=== PATIENT | male | born 1990 | race Two or more races ===

== ENCOUNTER 2018-10-14 14:51 | Emergency (ER) | payer SELFPAY ==
[2018-10-14] MEDS ORDERED: CEFAZOLIN 1 GM/D5W RTU 1 GM/50 ML RTUPB IV ONE (14:56)
[2018-10-14] MEDS ORDERED: RINGERS SOLUTION,LACTATED 1,000 ML IV PRN (15:16)
[2018-10-14] MEDS ORDERED: DIPH/PERTUSS(ACELL)/TETANUS VAC/PF 0.5 ML SYR (>=10YO) IM ONE (15:16)
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
[2018-10-14] MEDS ORDERED: MORPHINE SULFATE 10 MG/ML INJ IV ONE (15:43)
[2018-10-14] MEDS ORDERED: ONDANSETRON HCL INJ/PF 4 MG/2 ML SDV IV ONE (15:43)
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
== END 2018-10-14 16:00 | disposition short-term general hospital (02) ==
LOC: ER 14:51
DX: S52.501B Unspecified fracture of the lower end of right radius, initial encounter for open fracture type I or II (principal); S61.402A Unspecified open wound of left hand, initial encounter; W34.00XA Accidental discharge from unspecified firearms or gun, initial encounter; Y93.89 Activity, other specified; R61 Generalized hyperhidrosis; Z23 Encounter for immunization

== ENCOUNTER 2020-07-01 07:09 | Observation (INO) | payer SELFPAY ==
--- NOTE | 2020-07-01 07:40 | ER Document Report ---
ED General - General Chief Complaint: Abdominal Pain Stated Complaint: ABDOMINAL PAIN Time Seen by Provider: 07/01/20 07:30 Notes: 30-year-old male presents abdominal pain epigastric onset last night after eating some suspect chicken followed by diarrhea and vomiting x2. Pain persisted all night and is now localized to the lower abdomen right greater than left. Still nauseous but not vomiting no diarrhea no fever. Anorexia. TRAVEL OUTSIDE OF THE [place] IN LAST 30 DAYS: No - Related Data Allergies/Adverse Reactions: No Known Allergies Allergy (Verified 07/01/20 07:43) Past Medical History - General Information source: Patient - Social History Smoking Status: Never Smoker Family History: None Review of Systems - Review of Systems Notes: REVIEW OF SYSTEMS GEN: Denies fever, chills, weight loss ENT: Denies sore throat, nasal discharge, ear pain EYES: Denies blurry vision, eye pain, discharge CV: Denies chest pain, palpitations, edema RESP: Denies cough, shortness of breath, wheezing GI: See HPI MSK: Denies joint pain/swelling, edema, SKIN: Denies rash, skin lesions LYMPH: Denies swollen glands/lymph nodes NEURO: Denies headache, focal weakness or numbness, dizziness PSYCH: Denies depression, suicidal or homicidal ideation PHYSICAL EXAMINATION General: No acute distress, well-nourished Head: Atraumatic, normocephalic ENT: Mouth normal, oropharynx moist, no exudates or tonsillar enlargement Eyes: Conjunctiva normal, pupils equal, lids normal Neck: No JVD, supple, no guarding CVS: Normal rate, regular rhythm, no murmurs Resp: No resp distress, equal and normal breath sounds bilaterally GI: Right Lower abdominal tenderness with guarding Back: No CVA or midline TTP Skin: No rash, warm Lymphatic: No lymphadeopathy noted Neuro: Awake, alert. Face symmetric. GCS 15. Physical Exam - Vital signs Vitals: Temp Pulse Resp BP Pulse Ox 97.5 F 74 14 152/92 H 99 07/01/20 07:13 07/01/20 07:13 07/01/20 07:13 07/01/20 07:13 07/01/20 07:13 Course - Re-evaluation Re-evalutation: 07/01/20 11:21 No abdominal pain labs and CT concerning for appendicitis. Discussed with Eligio. Slight delay because of OR and lack of cover testing, Dr. Leblanc ordered Rocephin and I ordered that for the patient to receive. Sinus pain medicine was given. Surgery she was sorted out approximately 11 AM patient will go to the OR. - Vital Signs Vital signs: Temp Pulse Resp BP Pulse Ox 97.5 F 74 14 152/92 H 99 07/01/20 07:13 07/01/20 07:13 07/01/20 07:13 07/01/20 07:13 07/01/20 07:13 - Laboratory Result Diagrams: 07/01/20 07:50 07/01/20 07:50 Laboratory results interpreted by me: 07/01/20 07/01/20 07:50 07:50 WBC 15.3 H Seg Neuts % (Manual) 88 H Lymphocytes % (Manual) 6 L Abs Neuts (Manual) 13.5 H Glucose 140 H Discharge - Discharge Clinical Impression: Acute appendicitis Qualifiers: Acute appendicitis type: with localized peritonitis Appendicitis gangrene presence: without gangrene Appendicitis perforation presence: without perforation Appendicitis abscess presence: without abscess Qualified Code(s): K35.30 - Acute appendicitis with localized peritonitis, without perforation or gangrene Condition: Fair Disposition: ADMITTED INPATIENT Admitting Provider: Surgicalist Unit Admitted: Surgical Floor
[2020-07-01] MEDS ORDERED: ONDANSETRON HCL INJ/PF 4 MG/2 ML SDV IV ONE ×2 (08:12→15:02)
[2020-07-01] MEDS ORDERED: FENTANYL CITRATE INJ/PF 100 MCG/2 ML AMPUL IV ONE (08:12)
[2020-07-01 08:18] LABS: HEMATOCRIT 43.3 % (37.9-51.0); HEMOGLOBIN 15.1 g/dL (13.5-17.0); MEAN CORPUSCULAR HEMOGLOBIN 30.2 pg (27.0-33.4); MEAN CORPUSCULAR HGB CONC 34.8 g/dL (32.0-36.0); MEAN CORPUSCULAR VOLUME 87 fl (80-97); PLATELET COUNT 214 10^3/uL (150-450); RED CELL DISTRIBUTION WIDTH 12.9 % (11.5-14.0); WHITE BLOOD COUNT 15.3 10^3/uL (4.0-10.5)
[2020-07-01 08:30] LABS: ALKALINE PHOSPHATASE 53 U/L (38-126); ANION GAP 12 (5-19); ASPARTATE AMINO TRANSFERASE 20 U/L (17-59); BILIRUBIN,DIRECT 0.4 mg/dL (0.0-0.4); BLOOD UREA NITROGEN 12 mg/dL (7-20); CALCIUM 9.5 mg/dL (8.4-10.2); CARBON DIOXIDE 25 mmol/L (22-30); CHLORIDE 102 mmol/L (98-107); GLUCOSE 140 mg/dL (75-110)
[2020-07-01 09:02] LABS: ABSOLUTE LYMPHOCYTES# (MANUAL) 0.9 10^3/uL (0.5-4.7); ABSOLUTE MONOCYTES # (MANUAL) 0.9 10^3/uL (0.1-1.4); BASOPHILS % (MANUAL) 0 % (0-2); EOSINOPHILS % (MANUAL) 0 % (0-6); LYMPHOCYTES % (MANUAL) 6 % (13-45); MONOCYTES % (MANUAL) 6 % (3-13); SEGMENTED NEUTROPHILS % (MAN) 88 % (42-78); TOTAL CELLS COUNTED 100
[2020-07-01 09:03] LABS: PLATELET COMMENT ADEQUATE; RBC MORPHOLOGY COMMENT NORMO-CYTIC/CHROMIC; TOXIC GRANULATION SLIGHT
--- NOTE | 2020-07-01 09:04 | RADIOLOGY REPORT (SQ) ---
EXAM DESCRIPTION: CT ABD/PELVIS WITH IV ONLY IMAGES COMPLETED DATE/TIME: 07/01/2020 8:48 am REASON FOR STUDY: appy COMPARISON: None. TECHNIQUE: CT scan of the abdomen and pelvis performed using helical scanning technique with dynamic intravenous contrast injection. No oral contrast. Images reviewed with lung, soft tissue, and bone windows. Reconstructed coronal and sagittal MPR images reviewed. Delayed images for evaluation of the urinary system also acquired. All images stored on PACS. All CT scanners at this facility use dose modulation, iterative reconstruction, and/or weight based d osing when appropriate to reduce radiation dose to as low as reasonably achievable (ALARA). [facility]: Dose Right [facility]: CareDose [facility]: Dose Right [facility]: Teradose 4D [facility]: TapRush CONTRAST TYPE AND DOSE: contrast/concentration: Isovue 350.00 mmol/ml; Total Contrast Delivered: 98. 0 ml; Total Saline Delivered: 69.9 ml RENAL FUNCTION: None required. The patient is less than 50 years old. RADIATION DOSE: CT Rad equipment meets quality standard of care and radiation dose reduction techniq ues were employed. CTDIvol: 7.5 - 10.4 mGy. DLP: 1023 mGy-cm.. LIMITATIONS: None. FINDINGS: LOWER CHEST: No significant findings. No nodules or infiltrates. LIVER: Normal size. No masses. No dilated ducts. SPLEEN: Normal size. No focal lesions. PANCREAS: No masses. No significant calcifications. No adjacent inflammation or peripancreatic fluid collections. Pancreatic duct not dilated. GALLBLADDER: No identified stones by CT criteria. No inflammatory changes to suggest cholecystitis. ADRENAL GLANDS: No significant masses or asymmetry. RIGHT KIDNEY AND URETER: No solid masses. No significant calcifications. No hydronephrosis or hyd roureter. LEFT KIDNEY AND URETER: No solid masses. No significant calcifications. No hydronephrosis or hydr oureter. AORTA AND VESSELS: No aneurysm. No dissection. Renal arteries, SMA, celiac without stenosis. RETROPERITONEUM: No retroperitoneal adenopathy, hemorrhage or masses. BOWEL AND PERITONEAL CAVITY: No masses or inflammatory changes. No free fluid or peritoneal masses. APPENDIX: The appendix extends cephalad from the cecum and is oriented anterior and lateral to the as cending colon. The tip of the appendix is located a few cm below the liver edge. Best demonstrated on coronal series 601, image 25 and axial series 3, images 44- 54. The appendix is slightly distende d, measuring 10 to 11 mm. Scattered gas and fluid within the lumen. No significant thickening of th e appendiceal wall. Minimal blurring in the periappendiceal soft tissues. No abnormal fluid collect ion or extraluminal gas. PELVIS: No mass. No free fluid. Normal bladder. ABDOMINAL WALL: No masses. No hernias. BONES: No significant or acute findings. OTHER: No other significant finding. IMPRESSION: 1. APPENDIX DESCRIBED. SLIGHTLY DISTENDED WITH MINIMAL BLURRING IN THE PERIAPPENDICEAL SOFT TISSU ES. COULD REPRESENT VERY EARLY APPENDICITIS ALTHOUGH THERE IS NO THICKENING OF THE WALL AND VERY LIT TLE INFLAMMATORY CHANGE IS PRESENT. 2. NO OTHER SIGNIFICANT OR ACUTE FINDING IN THE ABDOMEN OR PELVIS ON CT SCAN WITH IV CONTRAST. TECHNICAL DOCUMENTATION: JOB ID: [id number] Quality ID # [id number]: Final reports with documentation of one or more dose reduction techniques (e.g., Au tomated exposure control, adjustment of the mA and/or kV according to patient size, use of iterative reconstruction technique) 2010 [employer]- All Rights Reserved Reading location - IP/workstation name: [email or web address]
[2020-07-01] MEDS ORDERED: ROCURONIUM BROMIDE INJ 50 MG/5 ML VIAL IV ONE (09:34)
[2020-07-01] MEDS ORDERED: NEOSTIGMINE METHYLSULFATE 10 MG/10 ML VIAL ONE (09:34)
[2020-07-01] MEDS ORDERED: SUCCINYLCHOLINE CHLORIDE INJ 200 MG/10 ML VIAL ONE (09:34)
[2020-07-01] MEDS ORDERED: GLYCOPYRROLATE 1 MG/5 ML VIAL ONE (09:34)
[2020-07-01] MEDS ORDERED: CEFTRIAXONE 1 GM/D5W RTU 1 GM/50 ML RTUPB IV ONE (10:00)
--- NOTE | 2020-07-01 11:04 | PDOC H&P ---
History of Present Illness Admission Date/PCP: 07/01/20 09:46 NO LOCALMD Patient complains of: Right lower quadrant abdominal pain for 8 hours History of Present Illness: FELIBERTO TAYLOR is a 30 year old male healthy who presents to the emergency room complaining of the right lower quadrant pain for about 8 hours, associated with intense nausea. No change of bowel. No fever or chills. Past Surgical History Past Surgical History: Reports: Orthopedic Surgery - right arm Social History Smoking Status: Never Smoker Family History Family History: None Parental Family History Reviewed: No Children Family History Reviewed: No Sibling(s) Family History Reviewed.: No Medication/Allergy Allergies/Adverse Reactions: No Known Allergies Allergy (Verified 07/01/20 07:43) Physical Exam Vital Signs: Temp Pulse Resp BP Pulse Ox 97.5 F 74 14 152/92 H 99 07/01/20 07:13 07/01/20 07:13 07/01/20 07:13 07/01/20 07:13 07/01/20 07:13 Intake & Output 06/30/20 07/01/20 07/02/20 06:59 06:59 06:59 Weight 86 kg General appearance: PRESENT: no acute distress, thin, well-developed Eye exam: PRESENT: EOMI Mouth exam: PRESENT: moist, neck supple Neck exam: PRESENT: full ROM Respiratory exam: PRESENT: clear to auscultation jonel Cardiovascular exam: PRESENT: RRR GI/Abdominal exam: PRESENT: soft, tenderness - Right lower quadrant with grimacing Rectal exam: PRESENT: deferred Extremities exam: PRESENT: full ROM Musculoskeletal exam: PRESENT: full ROM Neurological exam: PRESENT: alert, awake, oriented to person Skin exam: PRESENT: warm Results Laboratory Results: 07/01/20 07:50 07/01/20 07:50 07/01/20 07/01/20 07:50 07:50 WBC 15.3 H RBC 5.00 Hgb 15.1 Hct 43.3 MCV 87 MCH 30.2 MCHC 34.8 RDW 12.9 Plt Count 214 Seg Neutrophils % Not Reportable Sodium 138.5 Potassium 4.0 Chloride 102 Carbon Dioxide 25 Anion Gap 12 BUN 12 Creatinine 0.72 Est GFR ( Amer) > 60 Glucose 140 H Calcium 9.5 Total Bilirubin 1.0 AST 20 Alkaline Phosphatase 53 Total Protein 8.0 Albumin 5.0 Lipase 66.9 Impressions: Abdomen/Pelvis CT 07/01/20 08:12 IMPRESSION: 1. APPENDIX DESCRIBED. SLIGHTLY DISTENDED WITH MINIMAL BLURRING IN THE PERIAPPENDICEAL SOFT TISSUES. COULD REPRESENT VERY EARLY APPENDICITIS ALTHOUGH THERE IS NO THICKENING OF THE WALL AND VERY LITTLE INFLAMMATORY CHANGE IS PRESENT. 2. NO OTHER SIGNIFICANT OR ACUTE FINDING IN THE ABDOMEN OR PELVIS ON CT SCAN WITH IV CONTRAST. Assessment & Plan - Diagnosis (1) Acute appendicitis Qualifiers: Acute appendicitis type: with localized peritonitis Appendicitis gangrene presence: without gangrene Appendicitis perforation presence: without perforation Appendicitis abscess presence: without abscess Qualified Code(s): K35.30 - Acute appendicitis with localized peritonitis, without perforation or gangrene - Time Anticipated Discharge Disposition: Home, Self Care Anticipated Discharge Timeframe: within 24 hours - Plan Summary Plan Summary: Assessment: Right lower quadrant pain for 8 hours Acute appendicitis on CAT scan Leukocytosis (15,000) No past medical history Plan: Plan n.p.o. IV fluids normal saline 150 mL/h Rocephin 2 g IV piggyback and 2 g preop Laparoscopic appendectomy possible open. Procedure, risks, benefits, complications, explained to the patient, including the possibility of bowel injury, bleeding, DVT, infection, his questions answered, he understands all the above, and he decides to proceed
[2020-07-01] MEDS: HYDROMORPHONE HCL INJ/PF 2 MG/ML AMPULE IV PRN ×2 (11:57→21:13)
[2020-07-01 12:46] LABS: APPEARANCE,URINE CLEAR; BILIRUBIN,URINE NEGATIVE (NEGATIVE); COLOR,URINE YELLOW; GLUCOSE, URINE NEGATIVE (NEGATIVE); KETONES,URINE 80 mg/dL (NEGATIVE); LEUKOCYTE ESTERASE,URINE NEGATIVE (NEGATIVE); NITRITE,URINE NEGATIVE (NEGATIVE); PROTEIN,URINE NEGATIVE (NEGATIVE); UROBILINOGEN,URINE NEGATIVE mg/dL (<2.0)
[2020-07-01 12:51] LABS: URINE SPECIFIC GRAVITY > 1.060
[2020-07-01] MEDS ORDERED: DEXAMETHASONE SOD PHOSPHATE INJ 4 MG/1 ML VIAL ONE (16:26)
[2020-07-01] MEDS ORDERED: FENTANYL CITRATE INJ/PF 100 MCG/2 ML AMPUL ONE (16:26)
[2020-07-01] MEDS ORDERED: PROPOFOL INJ 200 MG/20 ML VIAL IV ONE (16:26)
[2020-07-01] MEDS ORDERED: MIDAZOLAM 2 MG/2 ML INJ ONE (16:26)
[2020-07-01] MEDS ORDERED: ONDANSETRON HCL INJ/PF 4 MG/2 ML SDV ONE (16:26)
[2020-07-01] MEDS ORDERED: KETOROLAC TROMETHAMINE 60 MG/2 ML SDV ONE (16:26)
[2020-07-01] MEDS ORDERED: BUPIVACAINE HCL 0.5%-EPI 1:200000 INJ/PF 30 ML VIAL ONE (17:44)
[2020-07-01] MEDS ORDERED: FENTANYL CITRATE INJ/PF 100 MCG/2 ML AMPUL IV PRN ×3 (18:19)
[2020-07-01] MEDS ORDERED: MEPERIDINE HCL/PF INJ 25 MG/1 ML DISP.SYRIN IV PRN (18:19)
[2020-07-01] MEDS ORDERED: DIPHENHYDRAMINE HCL 50 MG/ML VIAL IV PRN (18:19)
[2020-07-01] MEDS ORDERED: MORPHINE SULFATE 10 MG/ML INJ IV PRN (18:19)
[2020-07-01] MEDS ORDERED: PROMETHAZINE HCL INJ 25 MG/1 ML VIAL IV PRN (18:19)
--- NOTE | 2020-07-01 18:54 | Operative Report ---
Operative Report DATE OF SURGERY: 07/01/20 PREOPERATIVE DIAGNOSIS: Acute appendicitis POSTOPERATIVE DIAGNOSIS: Same OPERATION: LaparoScopic appendectomy SURGEON: CHARLY SHERMAN ANESTHESIA: GA - +30 mL's of-10 medicated with epinephrine TISSUE REMOVED OR ALTERED: Appendix COMPLICATIONS: None ESTIMATED BLOOD LOSS: Eligible INTRAOPERATIVE FINDINGS: Acute non-perforated appendicitis PROCEDURE: The procedure was done in the operating room. The patient was placed in a supine position, general anesthesia induced by endotracheal intubation, the abdomen was prepped and draped in usual fashion. An incision was made just above the umbilicus with a #15 blade, the skin was tented with towel clips and a 5 mm port with Optiview adapter and scope were inserted through the abdominal wall into the peritoneal cavity. After they CO2 pneumoperitoneum was obtained, under direct visualization a 5 mm report was inserted in the right lateral quadrant of the abdomen following skin incision. The scope was removed from the umbilical port and inserted into the right side port. The 5 mm umbilical port was removed and replaced with a 12 mm port, while the 5 mm port was inserted in left lower quadrant of the abdomen following skin incision. The patient was placed in steep Trendelenburg position with the right side elevated. The appendix was then identified by tracing the anterior tenia of the cecum, the appendix was then found, elevated, and stretched. The mesentery of the appendix was divided with the LigaSure. The appendix was found to be [non-perforated]. The appendix was stapled at the base with an Endo BRIDGET stapler, extracted from the peritoneal cavity with an Endobag through the umbilical port. The pneumoperitoneum was then re-established, the stapled line was examined and found to be intact. The umbilical fascial defect was closed with a [id number] 0 Vicryl suture, placed with a fascia closure device under direct visualization and left untied. All instruments were removed, the pneumoperitoneum was released, and all ports were removed. The umbilical fascial defect was closed with the previously placed [id number] 0 Vicryl suture, all skin incisions were closed with a 4-0 PDS running subcuticular suture, and covered with Dermabond. The patient tolerated the procedure well, was extubated, and transferred to the recovery room in satisfactory conditions.
[2020-07-01] MEDS ORDERED: ONDANSETRON HCL INJ/PF 4 MG/2 ML SDV IV PRN (18:55)
[2020-07-01] MEDS ORDERED: NORMAL SALINE 1000 ML 1,000 ML IV PRN (18:55)
[2020-07-01] MEDS ORDERED: DOCUSATE SODIUM 100 MG/10 ML UDC PO SCH (19:00)
[2020-07-01] MEDS ORDERED: TRAMADOL HCL 50 MG TABLET PO PRN (19:04)
[2020-07-01] MEDS ORDERED: ACETAMINOPHEN 1,000 MG/100 ML RTUPB IV ONE (19:35)
[2020-07-01] MEDS ORDERED: ENOXAPARIN SODIUM INJ 40 MG/0.4 ML DISP.SYRIN SUBCUT SCH (20:00)
[2020-07-01] MEDS: KETOROLAC TROMETHAMINE INJ/PF 30 MG/1 ML SDV IV SCH (20:40)
[2020-07-01] MEDS ORDERED: FAMOTIDINE INJ/PF 20 MG/2 ML SDV IV ONE (20:57)
[2020-07-01] MEDS ORDERED: FAMOTIDINE INJ/PF 20 MG/2 ML SDV IV SCH (22:00)
[2020-07-02] MEDS: KETOROLAC TROMETHAMINE INJ/PF 30 MG/1 ML SDV IV SCH ×2 (00:06→06:55)
[2020-07-02 05:38] LABS: ABSOLUTE LYMPHOCYTES (AUTO) 0.9 10^3/uL (0.5-4.7); ABSOLUTE MONOCYTES (AUTO) 0.7 10^3/uL (0.1-1.4); ABSOLUTE NEUT (AUTO) 11.2 10^3/uL (1.7-8.2); BASOPHILS % (AUTO) 0.2 % (0-2); EOSINOPHILS % (AUTO) 0.3 % (0-6); HEMATOCRIT 40.1 % (37.9-51.0); HEMOGLOBIN 13.9 g/dL (13.5-17.0); MEAN CORPUSCULAR HEMOGLOBIN 30.1 pg (27.0-33.4); MEAN CORPUSCULAR HGB CONC 34.6 g/dL (32.0-36.0); MEAN CORPUSCULAR VOLUME 87 fl (80-97); MONOCYTES % (AUTO) 5.7 % (3-13); PLATELET COUNT 193 10^3/uL (150-450); RED BLOOD COUNT 4.61 10^6/uL (4.35-5.55); RED CELL DISTRIBUTION WIDTH 12.8 % (11.5-14.0); SEGMENTED NEUTROPHILS % (AUTO) 86.8 % (42-78); TOTAL CELLS COUNTED % (AUTO) 100 %; WHITE BLOOD COUNT 12.9 10^3/uL (4.0-10.5)
[2020-07-02 05:56] LABS: ANION GAP 10 (5-19); BLOOD UREA NITROGEN 10 mg/dL (7-20); CALCIUM 9.4 mg/dL (8.4-10.2); CARBON DIOXIDE 26 mmol/L (22-30); CHLORIDE 104 mmol/L (98-107); GLUCOSE 116 mg/dL (75-110); POTASSIUM 4.5 mmol/L (3.6-5.0)
--- NOTE | 2020-07-02 09:37 | PDOC DISCHARGE SUMMARY ---
General - Admit/Disc Date/PCP Admission Date/Primary Care Provider: 07/01/20 09:46 NO LOCALMD Discharge Date: 07/02/20 - Discharge Diagnosis Final Diagnosis: Acute nonperforated appendicitis - Assessment Summary: This is a 30-year-old male who presented with acute appendicitis. He was taken to the operating room where laparoscopic appendectomy was successfully performed. The patient was found to have no evidence of perforation. He was sent to the floor in stable condition. Today, he is ambulating, tolerating a diet, and his pain is well controlled with oral pain medications. At this time I believe he has reached maximal hospital benefit, and is fit for discharge. - Additional Information Resuscitation Status: Full Code Discharge Diet: As Tolerated Discharge Activity: Balance Activity w/Rest, No Lifting Over 10 Pounds, No Lifting/Push/Pulling Referrals: LOCALMD,NO [Primary Care Provider] - Follow up as needed Prescriptions: Hydrocodone/Acetaminophen [[place] 10-325 mg Tablet] 1 tab PO Q6HP PRN #10 tablet PRN Reason: For Pain Home Medications: Hydrocodone/Acetaminophen [[place] 10-325 mg Tablet] 1 tab PO Q6HP PRN #10 tablet 07/02/20 Additional Information: Discharge home. Diet as tolerated. Activity: No lifting greater than 10 pounds x 2 weeks. Follow-up with [facility] in 7 to 10 days. Okay to shower tomorrow. No tub baths or swimming pools x2 weeks. [place] 10/325 mg p.o. every 6 hours as needed for pain. History of Present Illiness History of Present Illness: FELIBERTO TAYLOR is a 30 year old male Physical Exam Vital Signs: Temp Pulse Resp BP Pulse Ox 97.9 F 84 20 118/64 98 07/02/20 08:02 07/02/20 08:02 07/02/20 08:02 07/02/20 08:02 07/02/20 08:02 Intake & Output 07/01/20 07/02/20 07/03/20 06:59 06:59 06:59 Intake Total 1050 Output Total 10 Balance 1040 Weight 86 kg Results Laboratory Results: WBC 12.9 10^3/uL (4.0-10.5) H 07/02/20 05:18 RBC 4.61 10^6/uL (4.35-5.55) 07/02/20 05:18 Hgb 13.9 g/dL (13.5-17.0) 07/02/20 05:18 Hct 40.1 % (37.9-51.0) 07/02/20 05:18 MCV 87 fl (80-97) 07/02/20 05:18 MCH 30.1 pg (27.0-33.4) 07/02/20 05:18 MCHC 34.6 g/dL (32.0-36.0) 07/02/20 05:18 RDW 12.8 % (11.5-14.0) 07/02/20 05:18 Plt Count 193 10^3/uL (150-450) 07/02/20 05:18 Lymph % (Auto) 7.0 % (13-45) L 07/02/20 05:18 Coal % (Auto) 5.7 % (3-13) 07/02/20 05:18 Eos % (Auto) 0.3 % (0-6) 07/02/20 05:18 Baso % (Auto) 0.2 % (0-2) 07/02/20 05:18 Absolute Neuts (auto) 11.2 10^3/uL (1.7-8.2) H 07/02/20 05:18 Absolute Lymphs (auto) 0.9 10^3/uL (0.5-4.7) 07/02/20 05:18 Absolute Monos (auto) 0.7 10^3/uL (0.1-1.4) 07/02/20 05:18 Absolute Eos (auto) 0.0 10^3/uL (0.0-0.6) 07/02/20 05:18 Absolute Basos (auto) 0.0 10^3/uL (0.0-0.2) 07/02/20 05:18 Total Counted 100 07/01/20 07:50 Seg Neutrophils % 86.8 % (42-78) H 07/02/20 05:18 Seg Neuts % (Manual) 88 % (42-78) H 07/01/20 07:50 Lymphocytes % (Manual) 6 % (13-45) L 07/01/20 07:50 Monocytes % (Manual) 6 % (3-13) 07/01/20 07:50 Eosinophils % (Manual) 0 % (0-6) 07/01/20 07:50 Basophils % (Manual) 0 % (0-2) 07/01/20 07:50 Abs Neuts (Manual) 13.5 10^3/uL (1.7-8.2) H 07/01/20 07:50 Abs Lymphs (Manual) 0.9 10^3/uL (0.5-4.7) 07/01/20 07:50 Abs Monocytes (Manual) 0.9 10^3/uL (0.1-1.4) 07/01/20 07:50 Absolute Eos (Manual) 0.0 10^3/uL (0.0-0.6) 07/01/20 07:50 Abs Basophils (Manual) 0.0 10^3/uL (0.0-0.2) 07/01/20 07:50 Toxic Granulation SLIGHT 07/01/20 07:50 Platelet Comment ADEQUATE 07/01/20 07:50 RBC Morph Comment NORMO-CYTIC/CHROMIC 07/01/20 07:50 Sodium 140.3 mmol/L (137-145) 07/02/20 05:18 Potassium 4.5 mmol/L (3.6-5.0) 07/02/20 05:18 Chloride 104 mmol/L (98-107) 07/02/20 05:18 Carbon Dioxide 26 mmol/L (22-30) 07/02/20 05:18 Anion Gap 10 (5-19) 07/02/20 05:18 BUN 10 mg/dL (7-20) 07/02/20 05:18 Creatinine 0.79 mg/dL (0.52-1.25) 07/02/20 05:18 Est GFR ( Amer) > 60 (>60) 07/02/20 05:18 Est GFR (MDRD) Non-Af > 60 (>60) 07/02/20 05:18 Glucose 116 mg/dL (75-110) H 07/02/20 05:18 Calcium 9.4 mg/dL (8.4-10.2) 07/02/20 05:18 Total Bilirubin 1.0 mg/dL (0.2-1.3) 07/01/20 07:50 Direct Bilirubin 0.4 mg/dL (0.0-0.4) 07/01/20 07:50 Neonat Total Bilirubin Not Reportable 07/01/20 07:50 Neonat Direct Bilirubin Not Reportable 07/01/20 07:50 Neonat Indirect Bili Not Reportable 07/01/20 07:50 AST 20 U/L (17-59) 07/01/20 07:50 ALT 19 U/L (<50) 07/01/20 07:50 Alkaline Phosphatase 53 U/L (38-126) 07/01/20 07:50 Total Protein 8.0 g/dL (6.3-8.2) 07/01/20 07:50 Albumin 5.0 g/dL (3.5-5.0) 07/01/20 07:50 Lipase 66.9 U/L (23-300) 07/01/20 07:50 Urine Color YELLOW 07/01/20 12:25 Urine Appearance CLEAR 07/01/20 12:25 Urine pH 6.0 (5.0-9.0) 07/01/20 12:25 Ur Specific [place] > 1.060 07/01/20 12:25 Urine Protein NEGATIVE mg/dL (NEGATIVE) 07/01/20 12:25 Urine Glucose (UA) NEGATIVE mg/dL (NEGATIVE) 07/01/20 12:25 Urine Ketones 80 mg/dL (NEGATIVE) H 07/01/20 12:25 Urine Blood SMALL (NEGATIVE) H 07/01/20 12:25 Urine Nitrite NEGATIVE (NEGATIVE) 07/01/20 12:25 Urine Bilirubin NEGATIVE (NEGATIVE) 07/01/20 12:25 Urine Urobilinogen NEGATIVE mg/dL (<2.0) 07/01/20 12:25 Ur Leukocyte Esterase NEGATIVE (NEGATIVE) 07/01/20 12:25 Urine WBC (Auto) 0 /HPF 07/01/20 12:25 Urine RBC (Auto) 3 /HPF 07/01/20 12:25 Urine Mucus (Auto) RARE /LPF 07/01/20 12:25 Urine Ascorbic Acid NEGATIVE (NEGATIVE) 07/01/20 12:25 Impressions: Abdomen/Pelvis CT 07/01/20 08:12 IMPRESSION: 1. APPENDIX DESCRIBED. SLIGHTLY DISTENDED WITH MINIMAL BLURRING IN THE PERIAPPENDICEAL SOFT TISSUES. COULD REPRESENT VERY EARLY APPENDICITIS ALTHOUGH THERE IS NO THICKENING OF THE WALL AND VERY LITTLE INFLAMMATORY CHANGE IS PRESENT. 2. NO OTHER SIGNIFICANT OR ACUTE FINDING IN THE ABDOMEN OR PELVIS ON CT SCAN WITH IV CONTRAST.
[2020-07-02] MEDS ORDERED: CEFTRIAXONE 2 GM/D5W RTU 2 GM/50 ML RTUPB IV SCH (10:00)
[2020-07-02 10:05] VITALS: BP 153/82
[2020-07-02] MEDS: HYDROMORPHONE HCL INJ/PF 2 MG/ML AMPULE IV PRN (10:09)
== END 2020-07-02 10:28 | disposition home or self-care (01) ==
LOC: ER 07:09 → EH 09:46 → INTOOBSV 09:46 → 4W 20:04
PROVIDERS: ATTEND Surgery
DX: K35.30 Acute appendicitis with localized peritonitis, without perforation or gangrene (principal)
CPT/HCPCS: 44970; 36415 ×2; 83690; 85025 ×2; 80048; 80053; 81001; 88304 ×2; 74177; 99140; 00840; G0378 ×3; J2250; J3490 ×3; J1100; J1885 ×2; J3010; J2710; J1170 ×2; J0330; J2405; J7030; J2704; S0028; J0696; J0131; 840